=== PATIENT | female | born 1995 | race American Indian/Alaskan Native ===

== ENCOUNTER 2021-04-21 11:42 | Outpatient (CLI) | payer MEDICAID ==
[2021-04-21 13:16] LABS: Hematocrit 30.9 % (30.3-42.9); Hemoglobin 10.3 gm/dl (10.1-14.3); Mean Corpuscular HGB Conc 33 % (30-34); Mean Corpuscular Volume 81 fl (79-97); Platelet Count 272 K/mm3 (140-440); Red Blood Count 3.82 M/mm3 (3.65-5.03); Red Cell Distribution Width 14.3 % (13.2-15.2)
[2021-04-21 13:36] LABS: Alanine Aminotransferase 6 units/L (7-56); Uric Acid 3.7 mg/dL (3.5-7.6)
[2021-04-21 14:55] LABS: Bilirubin,Urine NEG (Negative); Blood,Urine SM (Negative); Color,Urine Amber (Yellow); Mucus,Urine 3+ /HPF; Urobilinogen,Urine < 2.0 mg/dL (<2.0)
[2021-04-21 14:59] LABS: WBC,Urine > 182.0 /HPF (0.0-6.0)
[2021-04-21 15:49] VITALS: BP 121/57
[2021-04-21] MEDS ORDERED: LACTATED RINGERS 500 ML IV ONE (16:58)
== END 2021-04-21 16:10 | disposition home or self-care (01) ==
LOC: TRG 11:42 → APU 11:44 → TRG 16:10
PROVIDERS: ATTEND Obstetrics & Gynecology
DX: O13.3 Gestational [pregnancy-induced] hypertension without significant proteinuria, third trimester (principal); Z3A.33 33 weeks gestation of pregnancy
CPT/HCPCS: 36415; 59025; 81001; 82565; 83615; 84450; 84460; 84550; 85027

== ENCOUNTER 2021-05-01 16:23 | Outpatient (CLI) | payer MEDICAID ==
[2021-05-01 17:47] LABS: Bilirubin,Urine NEG (Negative); Blood,Urine NEG (Negative); Color,Urine Amber (Yellow); Mucus,Urine 3+ /HPF; Urobilinogen,Urine < 2.0 mg/dL (<2.0)
[2021-05-01 17:52] LABS: Hematocrit 31.4 % (30.3-42.9); Hemoglobin 10.2 gm/dl (10.1-14.3); Mean Corpuscular HGB Conc 32 % (30-34); Mean Corpuscular Volume 81 fl (79-97); Platelet Count 295 K/mm3 (140-440); Red Blood Count 3.88 M/mm3 (3.65-5.03); Red Cell Distribution Width 13.8 % (13.2-15.2)
[2021-05-01 18:19] LABS: Alanine Aminotransferase 6 units/L (7-56); Uric Acid 4.2 mg/dL (3.5-7.6)
[2021-05-01] MEDS ORDERED: LACTATED RINGERS 500 ML IV ONE (19:00)
[2021-05-01] MEDS ORDERED: LIDOCAINE-MPF (1%) 10 MG/1 ML VIAL 5 ML INFILTRATI ONE (19:28)
[2021-05-01 19:39] VITALS: BP 136/70
== END 2021-05-01 19:50 | disposition home or self-care (01) ==
LOC: TRG 16:23 → APU 16:25 → TRG 19:50
PROVIDERS: ATTEND Obstetrics & Gynecology
DX: O13.3 Gestational [pregnancy-induced] hypertension without significant proteinuria, third trimester (principal); Z3A.35 35 weeks gestation of pregnancy
CPT/HCPCS: 36415; 59025; 81001; 82565; 83615; 84450; 84460; 84550; 85027; 96372; J0696